=== PATIENT | male | born 1945 | race African-American/Black ===

== ENCOUNTER 2021-09-16 08:50 | Inpatient (IN) ==
[2021-09-16] MEDS ORDERED: MOM Conc 10 ML UD.LIQ PO PRN (10:13)
[2021-09-16] MEDS ORDERED: Ondansetron 4 MG/2 ML VIAL IVP PRN (10:13)
[2021-09-16] MEDS ORDERED: Naloxone 0.4 MG/ML INJ IVP PRN (10:13)
[2021-09-16] MEDS ORDERED: Acetaminophen 325 MG TABLET PO PRN (10:13)
[2021-09-16] MEDS ORDERED: Mag Hydrox/Al Hydrox/Simeth 30 ML UDC PO PRN (10:13)
[2021-09-16 10:53] LABS: Basophils % 0.3 %; Eosinophils # 0.1 K/mcL (0.0-0.6); Eosinophils % 0.7 %; Hematocrit 43.4 % (37.5-50.1); Hemoglobin 14.3 g/dL (12.9-16.9); Immature Granulocytes % 0.6 % (0-4); Lymphocytes % 7.9 %; Mean Corpuscular HGB Conc 32.9 g/dL (31.6-35.5); Mean Corpuscular Hemoglobin 28.2 pg (28.0-33.3); Mean Corpuscular Volume 85.6 fL (83.0-100.0); Mean Platelet Volume 9.1 fL (9.4-12.4); Monocytes # 1.4 K/mcL (0.0-1.3); Monocytes % 11.5 %; Neutrophils # 9.8 K/mcL (1.6-8.9); Platelet Count 246 K/mcL (140-400); Red Blood Count 5.07 M/mcL (4.19-5.50); Red Cell Distribution Width 13.8 % (11.5-14.5); White Blood Count 12.4 K/mcL (4.3-11.1)
[2021-09-16 11:00] LABS: INR 1.3; Prothrombin Time 14.3 Seconds (9.4-12.1)
[2021-09-16 11:13] LABS: Calcium 8.8 mg/dL (8.6-10.3); Potassium 4.2 mEq/L (3.5-5.1)
[2021-09-16] MEDS ORDERED: Gadolinium Contrast Agent (WT Based) IV PRN (12:37)
[2021-09-16] MEDS ORDERED: *HR* Dextrose 50 % in Water (Syg) 50 ML SYRINGE IVP PRN (13:18)
[2021-09-16] MEDS ORDERED: D5% in Water 1,000 ML IVC PRN (13:18)
[2021-09-16] MEDS ORDERED: Dextrose Gel 15 GM/37.5 ML TUBE PO PRN ×2 (13:18)
[2021-09-16] MEDS ORDERED: Vancomycin 1,500 MG/265 ML IV.SOLN IVPB SCH (14:00)
[2021-09-16] MEDS: Insulin LISPRO 300 UNITS/3 ML VIAL SUBQ SCH (17:53)
[2021-09-16] MEDS: Piperacillin/Tazobactam 3.375 GM in 0.9 % Sodium Chloride Mini Bag 100 ML IVPB SCH (18:36)
[2021-09-16] MEDS ORDERED: Insulin LISPRO 300 UNITS/3 ML VIAL SUBQ SCH (21:00)
[2021-09-16] MEDS: carvediloL 6.25 MG TABLET PO SCH (21:18)
[2021-09-17] MEDS: Piperacillin/Tazobactam 3.375 GM in 0.9 % Sodium Chloride Mini Bag 100 ML IVPB SCH ×3 (00:44→15:53)
[2021-09-17 06:00] LABS: Hematocrit 42.6 % (37.5-50.1); Mean Corpuscular HGB Conc 32.9 g/dL (31.6-35.5); Mean Corpuscular Hemoglobin 27.8 pg (28.0-33.3); Mean Corpuscular Volume 84.5 fL (83.0-100.0); Platelet Count 256 K/mcL (140-400); Red Blood Count 5.04 M/mcL (4.19-5.50); Red Cell Distribution Width 13.6 % (11.5-14.5); White Blood Count 10.4 K/mcL (4.3-11.1)
[2021-09-17] MEDS ORDERED: *HR* Enoxaparin 40 MG/0.4 ML SYRINGE SQ SCH (06:00)
[2021-09-17 06:37] LABS: Calcium 8.7 mg/dL (8.6-10.3); Magnesium 1.8 mg/dL (1.6-2.6); Potassium 3.8 mEq/L (3.5-5.1)
[2021-09-17] MEDS ORDERED: Nitroglycerin 0.4 MG TAB.SUBL SL PRN ×2 (07:10→10:12)
[2021-09-17] MEDS ORDERED: Bupivacaine-MPF 0.25% 10 ML VIAL ONE (07:26)
[2021-09-17] MEDS ORDERED: Lidocaine 1% 0 ML ONE (07:26)
[2021-09-17 07:35] LABS: Estimated Average Glucose 166 mg/dl; Hemoglobin A1C 7.4 %
[2021-09-17] MEDS ORDERED: Lidocaine -MPF 2% 2 ML VIAL ONE (07:38)
[2021-09-17] MEDS ORDERED: *HR* FentaNYL (PF) 100 MCG/2 ML VIAL ONE (07:38)
[2021-09-17] MEDS ORDERED: Ondansetron 4 MG/2 ML VIAL ONE (07:38)
[2021-09-17] MEDS ORDERED: Ringers Solution, Lactated 1,000 ML IVC SCH (08:00)
[2021-09-17] MEDS ORDERED: carvediloL 6.25 MG TABLET PO SCH ×3 (08:00→17:00)
[2021-09-17] MEDS ORDERED: *HR* Etomidate 40 MG/20 ML VIAL IVP ONE (08:04)
[2021-09-17] MEDS ORDERED: *HR* Magnesium Sulfate 1 GM/2 ML VIAL ONE (08:04)
[2021-09-17] MEDS: Insulin LISPRO 300 UNITS/3 ML VIAL SUBQ SCH ×4 (08:15→19:52)
[2021-09-17] MEDS: carvediloL 6.25 MG TABLET PO SCH ×2 (08:16→15:53)
[2021-09-17] MEDS ORDERED: CYANOCOBALAMIN PO SCH (09:00)
[2021-09-17] MEDS ORDERED: Isosorbide MONOnitrate (24 HR) 30 MG TAB.ER.24H PO SCH (09:00)
[2021-09-17] MEDS ORDERED: VIT B6 PO SCH (09:00)
[2021-09-17] MEDS ORDERED: Aspirin Enteric Coated 81 MG Tablet PO SCH (09:00)
[2021-09-17] MEDS ORDERED: FOLIC AC PO SCH (09:00)
[2021-09-17] MEDS ORDERED: D5% in Water 1,000 ML IVC PRN (10:12)
[2021-09-17] MEDS ORDERED: Acetaminophen 325 MG TABLET PO PRN (10:12)
[2021-09-17] MEDS ORDERED: Ondansetron 4 MG/2 ML VIAL IVP PRN (10:12)
[2021-09-17] MEDS ORDERED: Gadolinium Contrast Agent (WT Based) IV PRN (10:12)
[2021-09-17] MEDS ORDERED: MOM Conc 10 ML UD.LIQ PO PRN (10:12)
[2021-09-17] MEDS ORDERED: Naloxone 0.4 MG/ML INJ IVP PRN (10:12)
[2021-09-17] MEDS ORDERED: Dextrose Gel 15 GM/37.5 ML TUBE PO PRN ×2 (10:12)
[2021-09-17] MEDS ORDERED: *HR* Dextrose 50 % in Water (Syg) 50 ML SYRINGE IVP PRN (10:12)
[2021-09-17] MEDS ORDERED: Mag Hydrox/Al Hydrox/Simeth 30 ML UDC PO PRN (10:12)
[2021-09-17] MEDS: Vancomycin 1,500 MG/265 ML IV.SOLN IVPB SCH (14:15)
[2021-09-18] MEDS: Piperacillin/Tazobactam 3.375 GM in 0.9 % Sodium Chloride Mini Bag 100 ML IVPB SCH ×4 (00:05→20:31)
[2021-09-18] MEDS: *HR* Enoxaparin 40 MG/0.4 ML SYRINGE SQ SCH (06:25)
[2021-09-18] MEDS: Aspirin Enteric Coated 81 MG Tablet PO SCH (07:53)
[2021-09-18] MEDS: Isosorbide MONOnitrate (24 HR) 30 MG TAB.ER.24H PO SCH (07:54)
[2021-09-18] MEDS: Insulin LISPRO 300 UNITS/3 ML VIAL SUBQ SCH ×4 (07:54→20:30)
[2021-09-18] MEDS: Vitamin B Complex/Vit C/Vit E 1 EACH TABLET PO SCH (07:54)
[2021-09-18] MEDS: carvediloL 6.25 MG TABLET PO SCH ×2 (07:54→16:52)
[2021-09-18] MEDS: Ringers Solution, Lactated 1,000 ML IVC SCH ×2 (07:57→14:38)
[2021-09-18 08:23] LABS: Calcium 8.7 mg/dL (8.6-10.3); Magnesium 2.2 mg/dL (1.6-2.6); Potassium 3.8 mEq/L (3.5-5.1)
[2021-09-18 08:24] LABS: Basophils % 0.3 %; Eosinophils # 0.1 K/mcL (0.0-0.6); Eosinophils % 1.1 %; Hemoglobin 14.3 g/dL (12.9-16.9); Immature Granulocytes % 0.5 % (0-4); Lymphocytes # 1.7 K/mcL (0.6-4.6); Mean Corpuscular HGB Conc 31.8 g/dL (31.6-35.5); Mean Corpuscular Hemoglobin 27.3 pg (28.0-33.3); Mean Platelet Volume 9.3 fL (9.4-12.4); Monocytes # 1.8 K/mcL (0.0-1.3); Monocytes % 14.2 %; Neutrophils # 9.2 K/mcL (1.6-8.9); Platelet Count 265 K/mcL (140-400); Red Blood Count 5.23 M/mcL (4.19-5.50); Red Cell Distribution Width 13.7 % (11.5-14.5); Segmented Neutrophils % 70.9 %; White Blood Count 12.9 K/mcL (4.3-11.1)
[2021-09-18] MEDS: Vancomycin 1,500 MG/265 ML IV.SOLN IVPB SCH (16:47)
[2021-09-18] MEDS ORDERED: Lidocaine -MPF 1% 5 ML AMPUL INFILT ONE (18:20)
[2021-09-19 05:11] LABS: Basophils # 0.1 K/mcL (0.0-0.2); Basophils % 0.5 %; Eosinophils # 0.3 K/mcL (0.0-0.6); Eosinophils % 2.7 %; Hematocrit 40.8 % (37.5-50.1); Hemoglobin 13.2 g/dL (12.9-16.9); Immature Granulocytes % 0.3 % (0-4); Lymphocytes # 1.6 K/mcL (0.6-4.6); Lymphocytes % 15.1 %; Mean Corpuscular HGB Conc 32.4 g/dL (31.6-35.5); Mean Corpuscular Hemoglobin 27.4 pg (28.0-33.3); Mean Corpuscular Volume 84.8 fL (83.0-100.0); Mean Platelet Volume 9.2 fL (9.4-12.4); Monocytes # 1.4 K/mcL (0.0-1.3); Neutrophils # 6.9 K/mcL (1.6-8.9); Platelet Count 262 K/mcL (140-400); Red Blood Count 4.81 M/mcL (4.19-5.50); Red Cell Distribution Width 13.8 % (11.5-14.5); Segmented Neutrophils % 67.4 %; White Blood Count 10.2 K/mcL (4.3-11.1)
[2021-09-19 05:25] LABS: Calcium 8.3 mg/dL (8.6-10.3); Potassium 3.7 mEq/L (3.5-5.1)
[2021-09-19] MEDS: Piperacillin/Tazobactam 3.375 GM in 0.9 % Sodium Chloride Mini Bag 100 ML IVPB SCH ×2 (05:45→13:51)
[2021-09-19] MEDS: *HR* Enoxaparin 40 MG/0.4 ML SYRINGE SQ SCH (05:46)
[2021-09-19] MEDS: Isosorbide MONOnitrate (24 HR) 30 MG TAB.ER.24H PO SCH (07:50)
[2021-09-19] MEDS: Aspirin Enteric Coated 81 MG Tablet PO SCH (07:50)
[2021-09-19] MEDS: Insulin LISPRO 300 UNITS/3 ML VIAL SUBQ SCH ×4 (07:50→20:46)
[2021-09-19] MEDS: carvediloL 6.25 MG TABLET PO SCH ×2 (07:50→16:39)
[2021-09-19] MEDS: Vitamin B Complex/Vit C/Vit E 1 EACH TABLET PO SCH (07:50)
[2021-09-19] MEDS: 0.9 % Sodium Chloride 1,000 ML IVC SCH (11:17)
[2021-09-19] MEDS ORDERED: Vancomycin 1,500 MG/265 ML IV.SOLN IVPB SCH (16:00)
[2021-09-19] MEDS: cefTRIAXone 2,000 MG in 0.9 % Sodium Chloride 20 ML IVPB SCH (16:39)
[2021-09-19] MEDS ORDERED: Vancomycin 1,750 MG/517.5 ML IV.SOLN IVPB SCH (18:00)
[2021-09-20] MEDS: 0.9 % Sodium Chloride 1,000 ML IVC SCH (02:19)
[2021-09-20 04:00] LABS: Basophils # 0.1 K/mcL (0.0-0.2); Basophils % 0.5 %; Eosinophils # 0.4 K/mcL (0.0-0.6); Eosinophils % 3.3 %; Hematocrit 42.4 % (37.5-50.1); Hemoglobin 13.7 g/dL (12.9-16.9); Immature Granulocytes % 0.5 % (0-4); Lymphocytes # 1.6 K/mcL (0.6-4.6); Lymphocytes % 14.7 %; Mean Corpuscular HGB Conc 32.3 g/dL (31.6-35.5); Mean Corpuscular Hemoglobin 27.7 pg (28.0-33.3); Mean Corpuscular Volume 85.8 fL (83.0-100.0); Mean Platelet Volume 9.4 fL (9.4-12.4); Monocytes # 1.4 K/mcL (0.0-1.3); Monocytes % 12.4 %; Neutrophils # 7.5 K/mcL (1.6-8.9); Platelet Count 273 K/mcL (140-400); Red Blood Count 4.94 M/mcL (4.19-5.50); Red Cell Distribution Width 13.7 % (11.5-14.5); Segmented Neutrophils % 68.6 %; White Blood Count 10.9 K/mcL (4.3-11.1)
[2021-09-20 04:21] LABS: Calcium 8.4 mg/dL (8.6-10.3); Potassium 3.9 mEq/L (3.5-5.1)
[2021-09-20] MEDS: *HR* Enoxaparin 40 MG/0.4 ML SYRINGE SQ SCH (06:01)
[2021-09-20] MEDS: Insulin LISPRO 300 UNITS/3 ML VIAL SUBQ SCH ×2 (08:31→13:58)
[2021-09-20] MEDS: Vitamin B Complex/Vit C/Vit E 1 EACH TABLET PO SCH (09:21)
[2021-09-20] MEDS: carvediloL 6.25 MG TABLET PO SCH (09:21)
[2021-09-20] MEDS: cefTRIAXone 2,000 MG in 0.9 % Sodium Chloride 20 ML IVPB SCH (09:22)
[2021-09-20] MEDS: Isosorbide MONOnitrate (24 HR) 30 MG TAB.ER.24H PO SCH (09:22)
[2021-09-20] MEDS: Aspirin Enteric Coated 81 MG Tablet PO SCH (09:22)
[2021-09-20 14:56] VITALS: BP 145/78; PULSE 82; TEMP 97.6; O2SAT 96
[2021-09-20 15:38] LABS: Influenza A PCR Negative (Negative); Influenza B PCR Negative (Negative); Resp. Syncytial Virus PCR Negative (Negative)
[2021-09-20 15:47] LABS: SARS-CoV-2 by PCR (In House) Negative (Negative)
== END 2021-09-20 16:17 | DRG 617 ==
LOC: 4WAOSI → SUATTDRO 08:50
PROVIDERS: ADMIT Internal Medicine; ATTEND Pharmacist